=== PATIENT | female | born 1930 | race Hispanic/Latino ===

== ENCOUNTER → 2017-09-20 | Outpatient (CLI) | payer MEDICARE ==
[~2017-09-20] MED LIST: DILTIAZEM ER120 MG PO; GLIPIZIDE10 MG PO; METFORMIN HCL1000 MG PO
--- NOTE | 2017-09-21 07:10 | Diagnostic Imaging Report ---
History: Dementia Comparison studies: None. Technique: 3-D T1 with axial, coronal and sagittal reformats, axial DWI, axial T2*GRE, axial T2 FLAIR and axial T2 FS. Intravenous contrast: None. Findings: Susceptibility artifact from metallic dental hardware results in mild distortion of several pulse sequences. This distortion is primarily present on the DWI sequence and within the included maxillofacial soft tissues and orbits. Structural lesions: No intra-or extra-axial masses. No hematomas. Atrophy: General: Moderate generalized volume loss. Focal: No disproportionate lobar, hippocampal, mesencephalic, pontine, or cerebellar atrophy. Whitney matter: Cortex: No signal abnormalities. No encephalomalacia. Basal ganglia: No atrophy or signal abnormalities. Thalami: No signal abnormalities. White matter signal intensity: A few scattered and mildly confluent-appearing periventricular T2 FLAIR hyperintense signal changes in the supratentorial white matter are nonspecific but most compatible with chronic small vessel ischemic changes. There is mild T2 FLAIR hyperintensity along the margins of the lateral ventricles. Micro hemorrhages: None. Extra axial spaces: No mass, no fluid collection. Ventricles: Mild to moderate compensatory dilatation. No hydrocephalus. Other: Skull: No bone marrow abnormalities. Vessels: Expected flow voids present in the major arteries and dural sinuses.. Sella: Mostly CSF filled sella, a nonspecific finding. Cranio-cervical junction: No abnormalities. Patent foramen magnum. No Chiari one malformation. Paranasal sinuses and mastoids: Mild nonspecific inflammatory mucosal thickening in the left maxillary sinuses. IMPRESSION: 1. Moderate generalized volume loss. No significant disproportionate lobar or hippocampal atrophy. 2. Mild supratentorial chronic microvascular ischemic changes. Signed by: Dr. Edwin Pineda M.D. on 09/21/2017 7:07 AM
== END ==
LOC: MRI 16:43
PROVIDERS: ATTEND Specialist
DX: F03.90 Unspecified dementia, unspecified severity, without behavioral disturbance, psychotic disturbance, mood disturbance, and anxiety (principal)
CPT/HCPCS: 70551